=== PATIENT | female | born 1980 | race American Indian/Alaskan Native ===

== ENCOUNTER 2019-10-09 12:04 | Emergency (ER) | payer OTHER ==
[2019-10-09 12:25] VITALS: BP 135/70
--- NOTE | 2019-10-09 17:24 | Emergency Department Report ---
Chief Complaint: Skin/Abscess/Foreign Body Stated Complaint: LT BREAST PAIN Time Seen by Provider: 10/09/19 16:10 - HPI History of Present Illness: This is a 39 y.o. F. that presents to the ER with painful mass to left breast behind areola for 1 week. Patient reports history of lumpectomy January 2019 prior to moving to [place]. Patient states she have not had time to find a PCP or [employer]UCER. Reports warmth and pain. Patient denies nipple dimpling, discharge - Exam Vital Signs: Vital Signs 10/09/19 12:24 Temperature 98.5 F Pulse Rate 74 Respiratory 18 Rate Blood Pressure 135/70 O2 Sat by Pulse 98 Oximetry MSE screening note: Focused history and physical exam performed. 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 I have also provided a list of primary care doctors for follow up. Prescriptions: HYDROcodone/APAP 5-325 [[place] 5/325] 1 each PO Q6HR PRN #12 tablet PRN Reason: Pain Referrals: [facility] [Provider Group] - 3-5 Days [facility] [Provider Group] - 3-5 Days [facility] [Provider Group] - 3-5 Days LINETTE WALDROP MD [Staff Physician] - 3-5 Days MARITZA PENN MD [Staff Physician] - 3-5 Days MIKE MAIER MD [Staff Physician] - 3-5 Days Time of Disposition: 17:27
== END 2019-10-09 17:40 | disposition home or self-care (01) ==
LOC: ED 12:04
DX: N63.20 Unspecified lump in the left breast, unspecified quadrant (principal); Z88.0 Allergy status to penicillin; Z88.4 Allergy status to anesthetic agent; Z88.8 Allergy status to other drugs, medicaments and biological substances
CPT/HCPCS: 99282